=== PATIENT | female | born 1980 | race Hispanic/Latino ===

== ENCOUNTER 2019-03-13 06:37 | Day surgery (SDC) | payer BC ==
[2019-03-11 17:08] VITALS: BP 113/71
[2019-03-11 17:12] LABS: BASOPHILS % (AUTO) 0.7 % (0.0-5.0); EOSINOPHILS % (AUTO) 2.7 % (0.0-8.0); HEMATOCRIT 36.1 % (36-48); MEAN CORPUSCULAR HEMOGLOBIN 25.7 pg (27.0-33.0); MEAN CORPUSCULAR HGB CONC 32.5 g/dL (32.0-36.0); MEAN CORPUSCULAR VOLUME 79.3 fL (79-99); NEUTROPHILS % (AUTO) 63.6 % (40.0-77.0); PLATELET COUNT (AUTO) 133 K/uL (130-400); RED BLOOD CELL COUNT(AUTO) 4.55 MIL/uL (4.00-5.50); RED CELL DISTRIBUTION WIDTH 17.5 % (11.0-15.5); WHITE BLOOD COUNT (AUTO) 5.3 K/uL (4.8-10.8)
[2019-03-12] MEDS: CALDOLOR 800MG+NS 250ML 250 ML IV SCH (07:00)
[2019-03-13] VITALS (14 sets, daily range): BP systolic 100–115; BP diastolic 49–72
[~2019-03-13] VITALS: Ht 160 cm; Wt 73.3 kg
[~2019-03-13 06:37] MED LIST: CALCIUM PO; ERGO500014 PO; IRON PO; LACTATED RINGERS 1000ML 1,000 ML IV SCH; LEVO125T4 PO; LIOT5 PO; [UNRECOGNIZED DRUG - OTHER] PO
[2019-03-13] MEDS ORDERED: LIDOCAINE PF 2% 5ML ABBOJECT ONE (07:14)
[2019-03-13] MEDS ORDERED: PROPOFOL 10 MG/ML 20ML VIAL IV ONE (07:14)
[2019-03-13] MEDS ORDERED: MIDAZOLAM HCL 1 MG/ML 2ML VIAL ONE (07:15)
[2019-03-13] MEDS ORDERED: ROCURONIUM 10MG/1ML SYR 10 MG/ML ML ONE (07:15)
[2019-03-13] MEDS ORDERED: MAGNESIUM SULFATE 1 GM/2 ML VIAL ONE (07:18)
[2019-03-13] MEDS ORDERED: KETAMINE 50MG/ML SYRINGE 50 MG/ML DISP.SYRIN IV ONE (07:18)
[2019-03-13] MEDS ORDERED: GLYCOPYRROLATE 1 MG/5 ML SYRINGE ONE (07:19)
[2019-03-13] MEDS ORDERED: ONDANSETRON HCL 4 MG/2 ML VIAL ONE ×2 (07:19→09:27)
[2019-03-13] MEDS ORDERED: BUPIVACAINE/PF 0.25% 30ML VIAL IJ ONE (07:55)
[2019-03-13] MEDS: CALDOLOR 800MG+NS 250ML 250 ML IV SCH (08:30)
[2019-03-13] MEDS ORDERED: ESMOLOL HCL 10 MG/ML 10 ML VIAL ONE (08:45)
[2019-03-13] MEDS ORDERED: NEOSTIGMINE 5MG/5ML SYR IV ONE (08:46)
[2019-03-13] MEDS ORDERED: MEPERIDINE-PF 25 MG/ML SYG ONE (09:26)
[2019-03-13] MEDS ORDERED: METOCLOPRAMIDE 10 MG/2 ML VIAL ONE (09:27)
--- NOTE | 2019-03-13 10:15 | NUR ---
post received pt from [facility], s/p btl. dermabond to lower abd area. site asymptomatic pt awake and alert,no distress noted. vs stable.
--- NOTE | 2019-03-13 10:45 | NUR ---
dc dc instructions given to pt sister , pt states gave her pain medication prescription prior to surgery already has at home. instructed to f/u with dr. corbin. both verbalized understanding.
--- NOTE | 2019-03-13 10:50 | NUR ---
dc pt dc home via [facility] , no distress noted denied any pain or discomforts. accompanied by sister
== END 2019-03-13 10:50 | disposition home or self-care (01) ==
LOC: DAH 06:37
PROVIDERS: ATTEND Obstetrics & Gynecology
DX: Z30.2 Encounter for sterilization (principal); N73.6 Female pelvic peritoneal adhesions (postinfective); N32.89 Other specified disorders of bladder; N81.10 Cystocele, unspecified; E03.9 Hypothyroidism, unspecified
CPT/HCPCS: 36415; 58670; 84703; 85025; 86850; 86900; 86901; A4215; A4221; A4222; A4223; A4351; A4663; C1769 ×2; G0168; J1741; J2001; J2175; J2250; J2405 ×2; J2704; J2710; J2765; J3475; J3490 ×4; J7030; J7120